=== PATIENT | female | born 1995 | race Caucasian/White ===

== ENCOUNTER 2017-03-31 19:34 | Emergency (ER) | payer SELFPAY ==
[2017-03-31] MEDS ORDERED: ONDANSETRON 4 MG/2 ML VIAL IVP ONE (21:39)
[2017-03-31] MEDS ORDERED: fentaNYL Inj 100 MCG/2 ML VIAL IVP ONE (21:39)
[2017-03-31] MEDS ORDERED: Sodium Chloride 0.9% 1,000 ML PRIMARY IV ONE (21:39)
--- NOTE | 2017-03-31 21:43 | PDOC ---
Female Problem HPI - General Chief Complaint: Vag Complaint/Bleed, <20WK IUP Stated Complaint: SPOTTING Date Seen by Provider: 03/31/17 Time Seen by Provider: 21:40 Source: POSITIVE: Patient, Spouse Exam Limitations: POSITIVE: No limitations Nurse's Notes Reviewed & Considered: Yes - History of Present Illness Initial Comments: This is a very pleasant 21-year-old female complaining of vaginal spotting. Patient is a A2 is presently 14 weeks gestation. This morning she developed abdominal cramping and light pink spotting. She denies any headache, sore throat, no chest pain or shortness of breath, she does have nausea and vomiting but no diarrhea, denies any fever chills or sweats, no rashes, no myalgias or arthralgias. Body Location Affected: REPORTS: Abdomen Timing: REPORTS: Intermittent Duration: <24 hours Severity: Moderate Quality: REPORTS: Cramping, "Pain" Context: REPORTS: Known Location of Pain: REPORTS: Left, Pelvic Pain, Pelvic Cramping Vaginal Bleeding: REPORTS: Spotting : REPORTS: Sexual History: REPORTS: Active Similar Symptoms Previously: Yes Recent Care Received: REPORTS: Denies Any Prior Injuries Related to Current Complaint?: No - Patient Home Medications Home Medications: Home Medications Sertraline HCl [Zoloft] 1 tab PO DAILY #30 tab 06/21/16 - Patient Allergies Allergies/Adverse Reactions: Allergies Allergy/AdvReac Type Severity Reaction Status Date / Time No Known Drug Allergies Allergy NOT Verified 03/31/17 19:49 APPLICABLE Past Medical History - heen HEENT History: Denies History Cardiovascular History: Denies History Respiratory History: Other (please comment) Additional Respiratory History: reports has been treated for exercise induced asthma Gastrointestinal History: Denies History Genitourinary History: Denies History Endocrine History: Denies History Musculoskeletal History: Other (please comment) Prosthesis or Implant: No Additional Musculoskeletal History: Involuntary movements Neurological History: Denies History Blood Disorders: Denies History Psychiatric History: Denies History History of Sexually Transmitted Diseases: No Female Reproductive History: Denies History Obstetrical History: Denies History Cancer History: Denies History In Past Year Been Physically Harmed or Verbally Threatened: No History of MDRO: No History of Other Communicable Diseases: No Tobacco Use: Never Smoker Alcohol Use: None Substance Use Type: None Previous Surgical History: Yes Type / Date of Surgery: ORAL SURGERY Anesthesia Reactions: No Malignant Hyperthermia: No Significant Family History: No pertinent family hx ROS - Limitations ROS Limitations: No Limitations Constitution: REPORTS: Denies Symptoms Cardiovascular: REPORTS: Denies Cardiac Symptoms Respiratory: REPORTS: Denies Resp Symptoms Neurological: REPORTS: Denies Neuro Symptoms Gastrointestinal: REPORTS: Abdominal Pain, Nausea, Vomitting Endocrine: REPORTS: Denies Symptoms Musculoskeletal: REPORTS: Denies MS Symptoms Genitourinary: REPORTS: Other (Vaginal spotting) Eyes: REPORTS: Denies Symptoms ENT: REPORTS: Denies Symptoms Skin: REPORTS: Denies Skin Symptoms Lympathic: REPORTS: Denies Lympathic Symptoms Immunologic: POSITIVE: Denies Symptoms Psychiatric: POSITIVE: Denies Psych Symptoms Female Genitourinary Exam - General Appearance General Appearance: POSITIVE: Alert, Cooperative, No Acute Distress, No Evidence of Trauma - HEENT HEENT: POSITIVE: Head Inspection Nml, Eyes Inspection Nml, Ears Inspection Nml, Nose Inspection Nml, Oral/Dental Inspect. Nml, Pharynx Inspect. Nml, PERRL, EOMI - Neck Neck: POSITIVE: Normal Inspection, No Apparent Injury - Respiratory Respiratory: POSITIVE: No Respiratory Distress, Breath Sounds Normal, Chest Non- Tender - Cardiovascular Cardiovascular: POSITIVE: Regular Rate and Rhythm, Heart Sounds Normal, Equal Pulses, Strong Pulses - Abdomen Abdomen: POSITIVE: Soft, Normal Bowel Sounds, No Distention, No Organomegaly, Tenderness (Left lower quadrant and suprapubic tenderness, no guarding or rebound present.) - Back Back: POSITIVE: Normal Inspection - Skin Skin: POSITIVE: Intact, Normal For Race, Warm, Dry, No Rash - Extremities Extremity: Non-Tender: (All Extremities), Normal ROM: (All Extremities), Normal Inspection: (All Extremities), Pelvis Stable: (All Extremities) - Neurological / Psychological Neurological: 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, 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 As Tested, Motor Normal, Sensation Normal, 5, 6 Female Genitourinary Progress - Results Reviewed by me Xrays/CTs/US Reviewed by me: Yes Discussed with Radiologist: Yes Lab Results Reviewed: Yes Lab Results:: Laboratory Results 03/31/17 03/31/17 Range/Units 19:51 21:53 WBC 7.80 (4.8-10.8) 10^3/uL RBC 4.53 (4.20-5.40) 10^6/uL Hgb 13.0 (12.0-16.0) g/dL Hct 38.2 (37.0-47.0) % MCV 84.3 (81-99) FL MCH 28.7 (27-31) PG MCHC 34.0 (33-37) g/dL RDW Std Deviation 40.4 (39-50) fL RDW Coeff of [place] 13.4 (11.5-14.5) % Plt Count 313 (140-350) 10*3/uL MPV 9.5 (7.4-12.2) FL Immature Gran % (Auto) 0.1 (0-5) % Neut % (Auto) 61.9 (50-80) % Lymph % (Auto) 30.5 (10-50) % [place] % (Auto) 6.7 (5-15) % Eos % (Auto) 0.4 (0-8) % Baso % (Auto) 0.4 (0-1) % Immature Gran # (Auto) 0.01 10*3/UL Neut # (Auto) 4.83 10*3/UL Lymph # (Auto) 2.38 10*3/uL [place] # (Auto) 0.52 (0.3-0.8) 10*3/UL Eos # (Auto) 0.03 10*3/UL Baso # (Auto) 0.03 10*3/UL WBC Morphology Comment Normal morphology (NORM) Plt Morphology Comment Normal morphology (NORM) RBC Morph Comment Normal morphology (NORM) Sodium 136 (135-145) meq/L Potassium 3.5 L (3.8-5.2) meq/L Chloride 104 (98-112) meq/L Carbon Dioxide 23 (23-33) meq/L Anion Gap 9 (5-20) BUN 8 (7-22) mg/dL Creatinine 0.5 (0.50-1.20) mg/dL Estimated GFR > 60 (>60 ml/min/1.73m(2)) BUN/Creatinine Ratio 16.00 (6-20) Glucose 77 L (78-110) mg/dL Calculated Osmolality 278.0 (267-292) mOsm/kg Calcium 9.1 (8.7-10.7) mg/dL Magnesium 1.9 (1.6-2.4) mg/dL Total Bilirubin 0.5 (0.3-1.2) mg/dL AST 24 (8-39) IU/L ALT 25 (9-52) IU/L Alkaline Phosphatase 59 (38-126) IU/L Total Protein 6.6 (6.1-8.0) g/dL Albumin 3.5 (3.5-4.8) g/dL Globulin 3.1 (2.50-4.10) g/dL Albumin/Globulin Ratio 1.10 L (1.3-2.0) mg/g TSH 2.18 (0.2700-4.2000) uIU/mL HCG, Quant 28582 mIU/ML Ur Collection Type Clean catch urine Urine Color Yellow Urine Clarity Clear (CLEAR) Urine pH 5.5 (5.0-8.5) Ur Specific [place] >=1.030 (1.005-1.030) U Specif Grav (Refrac) 1.027 Urine Protein Negative (NEG) mg/dl Urine Glucose (UA) Negative (NEG) mg/dL Urine Ketones 15 (NEG) Urine Occult Blood Moderate H (NEG) Urine Nitrate Negative (NEG) Urine Bilirubin Small (NEG) Urine Urobilinogen 1.0 (0.2) EU/dL Ur Leukocyte Esterase Negative (NEG) Urine RBC 3-5 (NONE) /hpf Urine WBC 0-1 (NONE) Ur Squamous Epith Cells Rare (NONE) Ur Renal Epithelial Cell None (NONE) Urine Crystals None Urine Bacteria Few (NONE) Urine Casts None (NONE) Urine Mucus Moderate (NONE) Urine Trichomonas None (NONE) Urine Yeast None (NONE) Ur Culture Indicated? Culture not set - Patient's Progress Pain Medication Addressed: POSITIVE: Yes Re-Examine Time: 00:19 Status: POSITIVE: Improved MDM / ED Course: Galvan, IV started, blood drawn and sent to the lab for studies, radiographic examinations were obtained. Findings CBC is unremarkable. Comprehensive metabolic panel is within normal limits. Urinalysis is negative. Ultrasound shows a single live intrauterine with an estimated gestational age of 13 weeks and 4 days based upon this ultrasound. assessment: Vaginal spotting. Plan discharge home. 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 Return to the emergency room if fevers, increased vaginal bleeding, or increasing pain. - Consult Counseled: POSITIVE: Patient, Family, RE: Lab Results, RE: Radiology Results, RE : DX, RE: Need for F/U Patient Care Time - Estimated PCT Patient Care Time (In Minutes): 30 Vital Signs - VS Reviewed Vital Signs Reviewed: Yes Discharge Clinical Impression: Vaginal spotting Discharge Disposition: Discharged to Home Condition: Good Patient Instructions Given at Discharge: Threatened Miscarriage (ED)
[2017-03-31 21:56] LABS: BASOPHILS % (AUTO) 0.4 % (0-1); EOSINOPHILS # (AUTO) 0.03 10*3/UL; EOSINOPHILS % (AUTO) 0.4 % (0-8); HEMATOCRIT 38.2 % (37.0-47.0); LYMPHOCYTES # (AUTO) 2.38 10*3/uL; MEAN CORPUSCULAR HEMOGLOBIN 28.7 PG (27-31); MEAN CORPUSCULAR VOLUME 84.3 FL (81-99); MEAN PLATELET VOLUME 9.5 FL (7.4-12.2); MONOCYTES # (AUTO) 0.52 10*3/UL (0.3-0.8); MONOCYTES % (AUTO) 6.7 % (5-15); NEUTROPHILS # (AUTO) 4.83 10*3/UL; NEUTROPHILS % (AUTO) 61.9 % (50-80); RED BLOOD COUNT 4.53 10^6/uL (4.20-5.40)
[2017-03-31 21:57] LABS: BILIRUBIN,URINE SMALL (NEG); CLARITY,URINE CLEAR (CLEAR); COLOR,URINE YELLOW; GLUCOSE, URINE (UA) NEGATIVE (NEG); NITRATE,URINE NEGATIVE (NEG); OCCULT BLOOD,URINE MODERATE (NEG); PH,URINE 5.5 (5.0-8.5); PROTEIN,URINE NEGATIVE (NEG)
[2017-03-31 21:57] LABS: BASOPHILS # (AUTO) 0.03 10*3/UL; PLATELET MORPHOLOGY COMMENT NORMAL MORPHOLOGY (NORM); RBC MORPHOLOGY COMMENT NORMAL MORPHOLOGY (NORM); WBC MORPHOLOGY COMMENT NORMAL MORPHOLOGY (NORM)
[2017-03-31 22:02] LABS: SQUAMOUS EPITHELIAL CELL,UR RARE; URINE SAMPLE TYPE CLEAN CATCH URINE; URINE SPECIFIC GRAVITY - MAN 1.027; WBC,URINE 0-1
[2017-03-31 22:03] LABS: BACTERIA,URINE FEW
[2017-03-31 22:06] LABS: BLOOD UREA NITROGEN 8 mg/dL (7-22); CALCIUM 9.1 mg/dL (8.7-10.7); EST GLOMERULAR FILTRATION > 60 (>60 ml/min/1.73m(2)); MAGNESIUM 1.9 mg/dL (1.6-2.4); SERUM ALBUMIN 3.5 g/dL (3.5-4.8)
--- NOTE | 2017-03-31 23:25 | DI ---
Findings: Routine early obstetric ultrasound demonstrates a single living intrauterine . Hea rt rate is 150 bpm. The gestational sac is normal in appearance. [place] rump length is 7.4 cm which co rresponds to a gestational age of 13 weeks 4 days. Gestational age by LMP is 13 weeks 4 days. The ovaries were not detected. There is no adnexal mass or free cul-de-sac fluid. Impression: 1. Single living intrauterine with estimated gestational age of 13 weeks 4 days based on is ultrasound. 2. The ovaries were not detected. There is no adnexal mass or free cul-de-sac fluid.
== END 2017-04-01 00:27 | disposition home or self-care (01) ==
LOC: ER 19:34
DX: O26.851 Spotting complicating pregnancy, first trimester (principal); R10.32 Left lower quadrant pain; R11.2 Nausea with vomiting, unspecified
CPT/HCPCS: 76815; 80053; 81001; 81003; 83735; 84443; 84702; 85025; 96361; 96374; 96375; 99283 ×2; J2405; J3010; J7030

== ENCOUNTER → 2017-04-06 | Outpatient (CLI) | payer SELFPAY ==
[2017-04-06 16:21] LABS: BASOPHILS # (AUTO) 0.02 10*3/UL; BASOPHILS % (AUTO) 0.2 % (0-1); EOSINOPHILS # (AUTO) 0.04 10*3/UL; EOSINOPHILS % (AUTO) 0.5 % (0-8); HEMATOCRIT 39.9 % (37.0-47.0); HEMOGLOBIN 13.7 g/dL (12.0-16.0); LYMPHOCYTES # (AUTO) 2.04 10*3/uL; MEAN CORPUSCULAR HEMOGLOBIN 29.2 PG (27-31); MEAN CORPUSCULAR HGB CONC 34.3 g/dL (33-37); MEAN CORPUSCULAR VOLUME 85.1 FL (81-99); MEAN PLATELET VOLUME 9.8 FL (7.4-12.2); MONOCYTES # (AUTO) 0.46 10*3/UL (0.3-0.8); MONOCYTES % (AUTO) 5.3 % (5-15); NEUTROPHILS # (AUTO) 6.18 10*3/UL; NEUTROPHILS % (AUTO) 70.6 % (50-80); RED BLOOD COUNT 4.69 10^6/uL (4.20-5.40)
[2017-04-06 16:23] LABS: PLATELET MORPHOLOGY COMMENT NORMAL MORPHOLOGY (NORM); RBC MORPHOLOGY COMMENT NORMAL MORPHOLOGY (NORM); WBC MORPHOLOGY COMMENT NORMAL MORPHOLOGY (NORM)
[2017-04-06 17:49] LABS: HIV ANTIBODY NEGATIVE (N); HIV-1 P24 ANTIGEN NEGATIVE (N)
== END ==
LOC: MOB LAB 15:26
PROVIDERS: ATTEND Student in an Organized Health Care Education/Training Program
DX: Z36 Encounter for antenatal screening of mother (principal); Z3A.14 14 weeks gestation of pregnancy
CPT/HCPCS: 80081; 86900; 86901; 87088

== ENCOUNTER 2017-09-26 20:00 | Inpatient (IN) ==
[2017-09-26] MEDS ORDERED: Metoclopramide Inj 10 MG/2 ML VIAL IV PRN (20:11)
[2017-09-26] MEDS ORDERED: CALCIUM CARBONATE 500 MG (TUMS) CHEWABLE TABLET PO PRN (20:11)
[2017-09-26] MEDS ORDERED: OXYTOCIN 10 UNIT/1 ML IM PRN (20:11)
[2017-09-26] MEDS ORDERED: Naloxone Inj 0.01 MG in Normal Saline Flush 1 ML IVP PRN (20:11)
[2017-09-26] MEDS ORDERED: diphenhydrAMINE 50 MG/1 ML VIAL IVP PRN (20:11)
[2017-09-26] MEDS ORDERED: Famotidine Inj 20 MG in Normal Saline Flush 10 ML IVP PRN ×4 (20:11)
[2017-09-26] MEDS ORDERED: Lidocaine 1% 10 MG/ML - 20 ML VIAL SUBCUT PRN (20:11)
[2017-09-26] MEDS ORDERED: CITRIC ACID/SODIUM CITRATE 30 ML CUP PO PRN (20:11)
[2017-09-26] MEDS ORDERED: Carboprost Inj 250 MCG/ML AMP IM PRN (20:11)
[2017-09-26] MEDS ORDERED: LIDOCAINE HCL 2 % 10 ML JELLY URO-JECT TOPICAL PRN (20:11)
[2017-09-26] MEDS ORDERED: MISOPROSTOL 200 MCG TABLET RECTAL PRN (20:11)
[2017-09-26] MEDS ORDERED: ONDANSETRON 4 MG/2 ML VIAL IVP PRN (20:11)
[2017-09-26] MEDS ORDERED: ePHEDrine Inj 5 MG in Normal Saline Flush 1 ML IVP PRN (20:11)
[2017-09-26] MEDS ORDERED: Nalbuphine Inj 20 MG/ML Ampule IVP PRN (20:11)
[2017-09-26] MEDS ORDERED: Phenylephrine Inj 50 MCG in Normal Saline Flush 0.5 ML IVP PRN (20:11)
[2017-09-26] MEDS ORDERED: NALOXONE 0.4 MG/1 ML VIAL IVP PRN (20:11)
[2017-09-26] MEDS ORDERED: LIDOCAINE W/ SODIUM BICARB 0.5 ML SYR SUBD PRN (20:11)
[2017-09-26] MEDS ORDERED: BUTORPHANOL TARTRATE 2 MG/1 ML VIAL IVP PRN (20:11)
[2017-09-26] MEDS ORDERED: TERBUTALINE SULFATE 1 MG/1 ML SDV SUBCUT PRN (20:11)
[2017-09-26] MEDS ORDERED: METHYLERGONOVINE MALEATE 0.2 MG/1 ML VIAL IM PRN (20:11)
[2017-09-26] MEDS ORDERED: NORMAL SALINE 10 ML SYRINGE FLUSH IVP PRN (20:11)
[2017-09-26] MEDS ORDERED: CefOXitin Inj 2 GM in Sodium Chloride 0.9% 100 ML IV PRN (20:11)
[2017-09-26] MEDS ORDERED: Misoprostol Tab 100 MCG TAB VAGINAL PRN (20:14)
[2017-09-26] MEDS ORDERED: Oxytocin 20 Units + LR 20 UNIT/1,000 ML BAG IV SCH (20:15)
[2017-09-26] MEDS ORDERED: Lactated Ringers 1,000 ML PRIMARY IV ONE (20:51)
[2017-09-26 21:03] LABS: Hemoglobin [HGB] 11.6 g/dL (12.0-16.0); MEAN CORPUSCULAR HEMOGLOBIN 26.8 PG (27-31); MEAN CORPUSCULAR HGB CONC 32.2 g/dL (33-37); MEAN CORPUSCULAR VOLUME 83.1 FL (81-99); MEAN PLATELET VOLUME 10.1 FL (7.4-12.2); RED BLOOD COUNT 4.33 10^6/uL (4.20-5.40)
[2017-09-26] MEDS: Lactated Ringers-OB Dept 1,000 ML PRIMARY IV SCH (21:53)
[2017-09-27] MEDS: Lactated Ringers-OB Dept 1,000 ML PRIMARY IV SCH ×2 (07:45→12:08)
--- NOTE | 2017-09-27 08:01 | OB.PROGRES ---
Interval History: 24 yo at 39 2/7 weeks gestation by first tri u/s admitted last night for elective IOL. She received 1 dose of cytotec 25 mcg pv, was liliana too frequently for a second. Reports this morning that she is pretty comfortable, tired. Denies LOF, VB. Good FM. OB Hx 10/25/13 delivered 7 lb 8.8 oz male at 37 6 via , 17 hours of labor, no epidural, [facility]. Reported threatened labor at 29 weeks otherwise uncomplicated , labor, delivery. Early SAB x 2 Summer 2015 [employer] REP Hx - pap normal early in , no H/o STI PMH - Exercise induced Asthma, rare albuterol use PSH - oral surgery SH - , lives with son and . Non smoker, no etoh, no drug use. Objective - Cervical Exam Cervical Exam: 4-5/50/-1 [place]: q2-5 mins Heart Rate: baseline 120, mod variability, no decels, +accels Heart Rate Interpretation Category: Category I - Labs CBC and BMP: 09/26/17 21:01 - Vital Signs Last Taken Vital Signs: Vital Signs - Last Taken Temperature 97.8 F 09/27/17 04:52 Pulse Rate 86 09/26/17 22:56 Respiratory Rate 14 09/27/17 04:52 Blood Pressure 126/75 09/26/17 20:11 Pulse Ox 98 09/27/17 06:48 Assessment and Plan - Patient Problems (1) Elective induction of labor planned Current Visit: Yes Status: Acute Support Text: 24yo at 39 2/7 weeks gestation here for elective IOL. S/p 25 mcg cytotec pv. AROM just now with clear fluid. Anticipate normal vaginal delivery. GBS negative. Would like to do this without epidural. Continue close monitoring.
[2017-09-27] MEDS: fentaNYL Inj 100 MCG/2 ML VIAL IV PRN ×2 (10:56→12:11)
[2017-09-27] MEDS ORDERED: ePHEDrine Inj 50 MG/ML AMP ONE (12:37)
[2017-09-27] MEDS ORDERED: Fent/Bupiv 2mcg/0.0625% Epid 250 ML ONE (12:38)
[2017-09-27] MEDS ORDERED: BUPIVACAINE SPINAL 7.5 MG/1 ML - 2 ML IV ONE (12:40)
--- NOTE | 2017-09-27 14:07 | OB.DEL.SUM ---
Delivery Note Delivery Summary: 22 yo G4 now P2022 was admitted last night for elective IOL. She was given one dose of 25mcg pv cytotec last night, underwent AROM around 0745 with clear fluid. At around 1300 she was complete, just after epidura/intrathecal combo. After 4 contractions with pushing at 1334 she delivered via normal vaginal delivery a TAGA female in GAMALIEL position over an intact perineum. No nuchal cord was noted. Her placenta delivered spontaneously, intact, with 3- vessel cord at 1338. She did have 2 periurethral lacerations that were hemostatic and did not require repair. EBL 200 cc. Mom and baby tolerated delivery well. Apgars 8, 9. weight 7lbs 5.7ozs. - Patient Problems (1) Elective induction of labor planned Current Visit: Yes Status: Acute
[2017-09-27] MEDS ORDERED: NORMAL SALINE 10 ML SYRINGE FLUSH IVP PRN (14:36)
[2017-09-27] MEDS ORDERED: BENZOCAINE/MENTHOL SPRAY 56 GM BOTTLE TOPICAL PRN (14:36)
[2017-09-27] MEDS ORDERED: ONDANSETRON 4 MG/2 ML VIAL IVP PRN (14:36)
[2017-09-27] MEDS ORDERED: Oxytocin 20 Units + LR 20 UNIT/1,000 ML BAG IV SCH (14:36)
[2017-09-27] MEDS ORDERED: LIDOCAINE HCL 2 % 10 ML JELLY URO-JECT TOPICAL PRN (14:36)
[2017-09-27] MEDS ORDERED: GLYCERIN/WITCH HAZEL 1 BOX TOPICAL PRN (14:36)
[2017-09-27] MEDS ORDERED: diphenhydrAMINE 25 MG CAPSULE PO PRN (14:36)
[2017-09-27] MEDS ORDERED: CALCIUM CARBONATE 500 MG (TUMS) CHEWABLE TABLET PO PRN (14:36)
[2017-09-27] MEDS ORDERED: Ondansetron ODT Tab 4 MG TAB PO PRN (14:36)
[2017-09-27] MEDS ORDERED: LANOLIN HPA 40 GM TUBE TOPICAL PRN (14:36)
[2017-09-27] MEDS ORDERED: ACETAMINOPHEN 325 MG TABLET PO PRN (14:36)
[2017-09-27] MEDS ORDERED: Nalbuphine Inj 20 MG/ML Ampule IVP PRN (14:36)
[2017-09-27] MEDS ORDERED: diphenhydrAMINE 50 MG/1 ML VIAL IVP PRN (14:36)
[2017-09-27 16:41] VITALS: O2SAT 98
--- NOTE | 2017-09-27 18:06 | CRNA.PROGR ---
Anesthesia Time - - Start date: 09/27/17 End date: 09/27/17 - Procedure/Recovery Time Anesthesia : Time In: 12:35 Anesthesia : Time Out: 14:35 Anesthesia : Total Time: 120 - Total Anesthesia Time Total Anesthesia Time (minutes): 120 - Other Weight: 85.275 kg Height: 5 ft 5 in Body Mass Index (BMI): 31.2 Physical Status: P2 Obstetrics: Planned vaginal delivery w/ neuraxial labor anesthesia/analog ( combined spinal/epidural)
--- NOTE | 2017-09-27 18:10 | CRNA.PROCE ---
Central Neuraxis Block Placemt - - Safety Measures: Time Out Taken - - Type of Block: Subarachnoid, Epidural Reason for Block: Analgesia Moniters Used During Block: SPO2, NIBP Positioning: Sitting Skin Prep Used: ChloroPrep Draped: Yes Skin Infiltration - Enter Amount Used in Comment Field: 1% Xylocaine (mL): Yes ( skin wheal) Spinal Needle Used: 27 Hakeem 123 mm, 18 Hustead 80 mm Local Anesthetic - Enter Amount Used in Comment Field: 0.75 % Bupivacaine with Dextrose (ml): Yes (3.75), 1.5 % Xylocaine with Epinephrine 1:200,000 (mL): Yes (5ml ) Number of Centimeters Catheter Threaded: 4 Bioclusive Dressing Applied: Yes Anesthesia Time - Other Weight: 85.275 kg Height: 5 ft 5 in Body Mass Index (BMI): 31.2
[2017-09-27] MEDS ORDERED: fentaNYL 2 MCG/BUPIVACAINE 0.0625%/NS 0.9% 250 ML BAG EPIDURAL SCH (18:15)
[2017-09-27] MEDS: DOCUSATE 100 MG CAPSULE PO SCH (21:48)
[2017-09-28] MEDS: IBUPROFEN 800 MG TABLET PO PRN ×2 (00:57→08:37)
[2017-09-28 08:03] LABS: Hematocrit [HCT] 34.5 % (37.0-47.0); MEAN CORPUSCULAR HEMOGLOBIN 26.6 PG (27-31); MEAN CORPUSCULAR HGB CONC 31.9 g/dL (33-37); MEAN CORPUSCULAR VOLUME 83.5 FL (81-99); MEAN PLATELET VOLUME 9.9 FL (7.4-12.2); RED BLOOD COUNT 4.13 10^6/uL (4.20-5.40)
--- NOTE | 2017-09-28 08:30 | DCSUMMARY ---
Hospitalization Summary Admit Date: 09/26/17 Discharge Date: 09/28/17 Primary Diagnosis:: Term , normal vaginal delivery Delivery Type: Vaginal Hospital Course: 22 yo G4 now P2022 admitted for elective IOL. She received one dose of 25mcg cytotec pv, AROM about 12 hours after admission, then progressed to complete. At 39 3/7 weeks gestation she delivered a TAGA female , 7lbs 5.7 oz, apgars 8,9. She did not require repair but did have periurethral skid qureshi. Mom is recovering well and ready for d/c to home. Ezra reyes. Pain well controlled. / Postop Complications: none apparent Complications: none apparent Exam - Vitals Vital Signs: Vital Signs Temperature 98.7 F Temperature Source Temporal Artery Scan Pulse Rate [Pulse Oximeter] 85 Pulse Rate 92 Respiratory Rate [Abdomen] 15 Respiratory Rate 16 Blood Pressure [Right Arm] 131/78 Blood Pressure 121/69 Pulse Ox 98 Oxygen Flow Rate 99 Oxygen Delivery Method Room Air Height 5 ft 5 in Weight 188 lb - General General Appearance: No Acute Distress - Head Head Exam: Normal Inspection, Normocephalic - Eye Eye Exam: POSITIVE: Normal Appearance - Respiratory Respiratory Exam: POSITIVE: Clear to Auscultation - Bilaterally, Breathing Non Labored - Cardiovascular Cardiovascular Exam: POSITIVE: RRR - GI/Abdominal GI/Abdominal Exam: POSITIVE: Normal Bowel Sounds (Uterus firm, at umbilicus) - Extremities Extremities Exam: POSITIVE: Normal Inspection, No Edema Present. NEGATIVE: Calf Tenderness - Back Back Exam: POSITIVE: Normal Inspection - Neurological Neurological Exam: POSITIVE: Alert, Oriented x 3 - Psychiatric Psychiatric Exam: POSITIVE: Normal Affect, Normal Mood - Integumentary Integumentary Exam: POSITIVE: Normal Color Patient Problems - Patient Problem List (1) Elective induction of labor planned Current Visit: Yes Status: Acute Category: Medical (2) Normal vaginal delivery Current Visit: Yes Status: Acute Code(s): O80 - Encounter for full-term uncomplicated delivery Support Text: Pain well controlled. Breast feeding. Motrin and colace sent to pharmacy, continue PNV. Plans to do POP for contraception. F/u with me 6 weeks pp. Category: Medical
[2017-09-28] MEDS: DOCUSATE 100 MG CAPSULE PO SCH (08:38)
[2017-09-28 08:51] VITALS: BP 124/76; RESP 18; TEMP 98.6
[2017-09-28] MEDS ORDERED: Lactated Ringers 1,000 ML PRIMARY IV ONE (09:00)
[2017-09-28] MEDS ORDERED: Prenatal Multivitamin Tab 1 TAB TAB PO SCH (09:00)
== END 2017-09-28 15:22 | disposition home or self-care (01) | DRG 775 ==
LOC: OBIP 20:05
PROVIDERS: ADMIT Student in an Organized Health Care Education/Training Program; ATTEND Student in an Organized Health Care Education/Training Program